=== PATIENT | female | born 1945 | race Caucasian/White ===

== ENCOUNTER → 2018-03-04 08:15 | Outpatient (CLI) | payer MEDICARE, SELFPAY ==
--- NOTE | 2018-03-04 | DI.MG.S_ITS ---
UNILATERAL RIGHT DIGITAL DIAGNOSTIC MAMMOGRAM 3D/2D WITH ADDITIONAL VIEWS: 03/04/2018 CLINICAL: Additional evaluation requested from prior study. Family history of breast cancer. Comparison is made to exams dated: 01/30/2018 mammogram, 01/30/2017 mammogram, and 01/31/2016 mammogram - [facility]. The tissue of the right breast is heterogeneously dense. This may lower the sensitivity of mammography. There are grouped fine punctate calcifications in the right breast posterior depth lateral region seen on the craniocaudal view only. No other significant masses or calcifications are seen in the breast. IMPRESSION: PROBABLY BENIGN The grouped fine punctate calcifications in the right breast are probably benign. A follow-up mammogram in 6 months is recommended. A follow-up mammogram in 6 months is recommended to demonstrate stability. This exam was interpreted at Station ID: [id number]. NOTE: For mammograms, a report in lay terms will be sent to the patient. Approximately 15% of breast malignancies will not be visualized mammographically. In the management of a palpable breast mass, a negative mammogram must not discourage biopsy of a clinically suspicious lesion. Electronically Signed By: Bjorn espino/kalie:03/04/2018 09:21:14 letter sent: Followup Recommended ACR BI-RADS Category 3: Probably benign 3343F
== END ==
PROVIDERS: Family Provider Internal Medicine; PCP Internal Medicine; Visit Provider Internal Medicine
DX: R92.8 Other abnormal and inconclusive findings on diagnostic imaging of breast (principal)
CPT/HCPCS: 77065; G0279

== ENCOUNTER → 2018-07-15 09:25 | Outpatient (CLI) | payer MEDICARE, SELFPAY ==
--- NOTE | 2018-07-15 | DI.MG.S_ITS ---
UNILATERAL RIGHT DIGITAL DIAGNOSTIC MAMMOGRAM 3D/2D WITH AUGMENTATION: 07/15/2018 CLINICAL: Patient returns for a 6 month follow up of the right breast. Comparison is made to exams dated: 03/04/2018 mammogram, 01/30/2018 mammogram, 01/30/2017 mammogram, 01/31/2016 mammogram, and 01/29/2015 mammogram - [facility]. The tissue of right breast is heterogeneously dense. This may lower the sensitivity of mammography. There are stable grouped fine punctate calcifications in the right breast middle depth lateral region seen on the craniocaudal view only. No other significant masses or calcifications are seen in the breast. IMPRESSION: PROBABLY BENIGN The stable grouped fine punctate calcifications in the right breast are probably benign. A follow-up mammogram in 6 months is recommended to demonstrate stability. This exam was interpreted at Station ID: [id number]. NOTE: For mammograms, a report in lay terms will be sent to the patient. Approximately 15% of breast malignancies will not be visualized mammographically. In the management of a palpable breast mass, a negative mammogram must not discourage biopsy of a clinically suspicious lesion. Electronically Signed By: Cristina craig/:07/15/2018 12:01:45 letter sent: Followup Recommended ACR BI-RADS Category 3: Probably benign 3343F
== END ==
PROVIDERS: Family Provider Internal Medicine; PCP Internal Medicine; Visit Provider Internal Medicine
DX: R92.1 Mammographic calcification found on diagnostic imaging of breast (principal)
CPT/HCPCS: 77065; G0279

== ENCOUNTER → 2019-01-13 07:51 | Outpatient (CLI) | payer MEDICARE, SELFPAY ==
--- NOTE | 2019-01-13 | DI.MG.S_ITS ---
BILATERAL DIGITAL DIAGNOSTIC MAMMOGRAM 3D/2D SHORT-TERM FOLLOW-UP WITH AUGMENTATION: 01/13/2019 CLINICAL: SHORT TERM FOLLOW UP RIGHT BREAST, DUE BILATERALLY. Family history of breast cancer. Comparison is made to exams dated: 07/15/2018 mammogram, 03/04/2018 mammogram, and 01/30/2018 mammogram - [facility]. The tissue of both breasts is heterogeneously dense. This may lower the sensitivity of mammography. There are stable benign loosely grouped fine punctate calcifications in the right breast posterior depth lateral region seen on the craniocaudal view only. Prepectoral silicone implants are in place and appear stable. No other significant masses, calcifications, or other findings are seen in either breast. IMPRESSION: Stable grouped right breast calcifications. There is no mammographic evidence of malignancy. Stable, intact implants. A 1 year screening mammogram is recommended. Findings and recommendations conveyed to the patient. This exam was interpreted at Station ID: [id number]. NOTE: For mammograms, a report in lay terms will be sent to the patient. Approximately 15% of breast malignancies will not be visualized mammographically. In the management of a palpable breast mass, a negative mammogram must not discourage biopsy of a clinically suspicious lesion. Electronically Signed By: Kadie france/:01/13/2019 09:24:04 letter sent: Normal Exam ACR BI-RADS Category 2: Benign Finding(s) 3342F
== END ==
PROVIDERS: PCP Internal Medicine; Visit Provider Internal Medicine
DX: R92.1 Mammographic calcification found on diagnostic imaging of breast (principal); Z80.3 Family history of malignant neoplasm of breast; Z98.82 Breast implant status
CPT/HCPCS: 77066; G0279

== ENCOUNTER → 2019-01-17 14:29 | Outpatient (CLI) | payer MEDICARE, SELFPAY ==
--- NOTE | 2019-01-17 | DI.RAD.S_ITS ---
This blank DEXA report has been sent in error by the PACS system. The correct and complete report will be forthcoming in 1-2 days. Thank you for your patience and understanding. Dictated by: Liborio Gipson M.D. on 01/17/2019 at 15:38 Approved by: Liborio Gipson M.D. on 01/17/2019 at 15:38
== END ==
PROVIDERS: PCP Internal Medicine; Visit Provider Internal Medicine
DX: M85.851 Other specified disorders of bone density and structure, right thigh (principal); Z78.0 Asymptomatic menopausal state; Z87.891 Personal history of nicotine dependence
CPT/HCPCS: 77080

== ENCOUNTER → 2019-04-08 07:11 | Outpatient (CLI) | payer MEDICARE, SELFPAY ==
[2019-04-08 08:22] LABS: Alanine Aminotransferase 25 IU/L (9-52); Aspartate Aminotransferase 33 IU/L (14-36); BUN Creatinine Ratio 22.9 (6-22); Blood Urea Nitrogen 16 mg/dL (7-17); Calcium 9.5 mg/dL (8.4-10.2); Carbon Dioxide 27 mmol/L (22-32); Chloride 108 mmol/L (98-107); Cholesterol 150 mg/dL (140-199); Estimated Glomerular Filt Rate > 60.0 mL/min (>60); Glucose 84 mg/dL (80-110); HDL Cholesterol 69 mg/dL (40-60); HEMOLYSIS < 15 (0-50); LDL Cholesterol Calculated 73 mg/dL (<100); Sodium 142 mmol/L (137-145); Triglycerides 38 mg/dL (35-150)
[2019-04-08 08:46] LABS: Vitamin D 25 Hydroxy (D3) 52.8 ng/mL (30.0-100.0)
== END ==
PROVIDERS: PCP Internal Medicine; Visit Provider Internal Medicine
DX: E78.5 Hyperlipidemia, unspecified (principal); M85.80 Other specified disorders of bone density and structure, unspecified site
CPT/HCPCS: 36415; 80048; 80061; 82306; 84450; 84460

== ENCOUNTER 2019-05-14 12:08 | Day surgery (SDC) | payer MEDICARE, SELFPAY ==
--- NOTE | 2019-05-10 19:01 | PM.PREOP ---
Pre-operative Note Interval Note History & Physical reviewed/Exam performed by Physician: Yes Changes to H&P: No
--- NOTE | 2019-05-10 19:01 | PM.OP.1 ---
Operative Date/Time/Diagnoses Date of procedure: 05/14/19 Time of procedure: 14:15 Procedure & Clinicians Procedure: Preoperative diagnoses: 1. Left nuclear sclerotic and cortical cataract. 2. Sleep disorder. Postoperative diagnoses: 1. Cataract removed by phacoemulsification with placement of posterior chamber intraocular lens. Procedure: Phacoemulsification with posterior chamber intraocular lens implant Surgeon: Florencia Johnson MD Complications: None Specimen: None Implant: ZCBOO+23.5 Blood loss: None Anesthesia: Retrobulbar with monitored standby Description of procedure: Patient presents with a complaint of decreased vision due to cataract which is affecting activities of daily living. The patient wants surgery to improve vision. The patient was taken to the operating room and given IV sedation. A retrobulbar block consisting of 6 cc of 2% xylocaine without epinephrine mixed half and half with 0.5% Marcaine with 1 cc of hyaluronidase added is placed between the medial and lateral 1/3 of the inferior orbital rim. Lid akinesia is obtain with 1% xylocaine with epinephrine infiltrated along the lid margin. The eye is manually massaged for 30 sec, prepped using Betadine solution, and draped in the usual sterile fashion. Temporal approach was made, a 1 mm side-port incision was made 90? from the proposed clear corneal incision position. Phenylephrine 1.5% mixed with 1% xylocaine 0.2 cc was placed into the anterior chamber. Viscoat followed by Maribeth was then placed. A 2.6 mm clear incision with a 2.6 mm blade was placed. A 360 degree capsulorrhexis style capsulotomy was then performed with a cystitome needle on a Healon. Hydrodelineation and hydrodissection were performed. The phacoemulsification unit is introduced, and sculpting notice used to groove the central lens. It is then removed in chopping mode. Epi nucleus is removed with epinuclear mode and irrigation aspiration was used to remove the peripheral cortex. The posterior capsule is polished. The intraocular lens is selected, inspected, power confirmed, and placed in the posterior chamber. The pupil was constricted with Miostat.. The wound was stromally hydrated and tested for leaks, there was none and it was left sutureless. Vigamox 0.1 cc was placed into the anterior chamber. Kenalog 0.2 cc was placed in the superior subconjunctival space. A drop of antibiotic and was placed and the eye was patched and shielded. The patient was stable and returned to the recovery room in excellent condition. Dictated by: Florencia Johnson MD Copy to: [facility]
[2019-05-14] MEDS: PROPARACAINE 0.5% OPHTH SOL 2 DROPS EYE-OP (12:25)
[2019-05-14 12:30] VITALS: BP 138/78; PULSE 73; RESP 20; TEMP 37.3; O2SAT 100; BMI 21.8
[2019-05-14] MEDS: CATARACT EYE COMPOUND (10 DROPS/SYRINGE) 3 DROPS EYE-OP (12:30)
[2019-05-14] MEDS: BALANCED SALT IRRIG SOLN NO.2 15 ML IRR (13:58)
[2019-05-14] MEDS: CHONDROIDTIN/SOD HYALURONATE 1.05 ML SYRINGE INTRAOCULA (13:59)
[2019-05-14] MEDS: MOXIFLOXACIN OPHTH DROPS 3 ML BOTTLE 2 DROPS INJ (13:59)
[2019-05-14] MEDS: NEOMYCIN/POLY/DEX OPHTH OINT 1 APPLIC EYE-LEFT (13:59)
[2019-05-14] MEDS: HYALURONATE SODIUM 10 MG/ML SYRINGE INJ (13:59)
[2019-05-14] MEDS: PHENYLEPHRINE/LIDOCAINE VIAL (OR) 0.2 ML EYE-OP (14:00)
[2019-05-14] MEDS: TRIAMCINOLONE 50 MG/5 ML VIAL INJ (14:00)
[2019-05-14] MEDS: BALANCED SALT IRRIG SOLN NO.2 500 ML, EPINEPHrine 1 MG IRR (14:01)
[2019-05-14] MEDS: LIDOCAINE 2% 4 ML, BUPIVACAINE 0.5% (PF) 4 ML, HYALURONIDASE 150 UNIT INJ (14:01)
[2019-05-14 14:30] VITALS: BP 137/68; PULSE 69; RESP 16; TEMP 36.3; O2SAT 100
== END 2019-05-14 14:43 | disposition home or self-care (01) ==
LOC: OR 12:09
PROVIDERS: PCP Internal Medicine; Visit Provider Ophthalmology
PROC: (CPT 66984; principal; 2019-05-14 14:15)
DX: H25.812 Combined forms of age-related cataract, left eye (principal)
CPT/HCPCS: 66984; J0171; J2704; J3301; J3470

== ENCOUNTER → 2020-02-11 08:57 | Outpatient (CLI) | payer MEDICARE, SELFPAY ==
--- NOTE | 2020-02-11 | DI.US.S_ITS ---
LIMITED ULTRASOUND OF LEFT BREAST: 02/11/2020 CLINICAL: Focal left breast pain. Comparison is made to exams dated: 02/11/2020 mammogram, 01/13/2019 mammogram, 01/30/2018 mammogram, 01/30/2017 mammogram, 01/31/2016 mammogram, and 07/15/2018 mammogram - [facility]. Real-time ultrasound of the left breast 11-1 o'clock region was performed. Dowd scale images of the real-time examination were reviewed. No significant abnormalities were seen sonographically in the left breast in the region of focal pain. IMPRESSION: NEGATIVE There is no sonographic evidence of malignancy in the region of focal pain in the left breast. Exam findings and recommendation were conveyed to the patient by the [employer] D[employer]. Patient is advised to monitor the area for significant change. Return to annual mammogram screening schedule is recommended. This exam was interpreted at Station ID: [id number]. Electronically Signed By: Adriano Carranza M.D. slc/:02/11/2020 11:54:02 letter sent: Normal Exam Ultrasound BI-RADS: 1 Negative
--- NOTE | 2020-02-11 | DI.MG.S_ITS ---
BILATERAL DIGITAL DIAGNOSTIC MAMMOGRAM 3D/2D WITH AUGMENTATION: 02/11/2020 CLINICAL: Left breast pain. Comparison is made to exams dated: 01/13/2019 mammogram, 07/15/2018 mammogram, 03/04/2018 mammogram, 01/30/2018 mammogram, 01/30/2017 mammogram, and 01/31/2016 mammogram - [facility]. The tissue of both breasts is heterogeneously dense. This may lower the sensitivity of mammography. No mammographic finding in the region of focal pain in the left superior breast. There are stable benign grouped fine punctate calcifications in the right breast posterior depth lateral region seen on the craniocaudal view only. These maybe associated with the breast implant capsule. Mild irregularity of the left breast prepectoral silicone implant at the inferior medial margin is stable over multiple prior exams. No other significant masses, calcifications, or other findings are seen in either breast. IMPRESSION: INCOMPLETE: NEEDS ADDITIONAL IMAGING EVALUATION No mammographic evidence of malignancy. Targeted ultrasound of the left superior breast at the site of focal pain is recommended and will immediately follow. This exam was interpreted at Station ID: [id number]. NOTE: For mammograms, a report in lay terms will be sent to the patient. Approximately 15% of breast malignancies will not be visualized mammographically. In the management of a palpable breast mass, a negative mammogram must not discourage biopsy of a clinically suspicious lesion. Electronically Signed By: Adriano Carranza M.D. [facility] [place]/:02/11/2020 11:25:22 ACR BI-RADS Category 0: Incomplete 3340F
== END ==
PROVIDERS: PCP Internal Medicine; Referring Provider Internal Medicine; Visit Provider Internal Medicine
DX: R92.8 Other abnormal and inconclusive findings on diagnostic imaging of breast (principal); R92.1 Mammographic calcification found on diagnostic imaging of breast; N64.4 Mastodynia; Z98.82 Breast implant status
CPT/HCPCS: 76642; 77066; G0279

== ENCOUNTER → 2020-04-30 07:10 | Outpatient (CLI) | payer MEDICARE, SELFPAY ==
[2020-04-30 08:41] LABS: Alanine Aminotransferase 28 IU/L (<35); Aspartate Aminotransferase 38 IU/L (14-36); Cholesterol 164 mg/dL (140-199); HDL Cholesterol 66 mg/dL (40-60); LDL Cholesterol Calculated 86 mg/dL (<100); Triglycerides 60 mg/dL (35-150)
== END ==
PROVIDERS: PCP Internal Medicine; Referring Provider Internal Medicine; Visit Provider Internal Medicine
DX: E78.5 Hyperlipidemia, unspecified (principal)
CPT/HCPCS: 36415; 80061; 84450; 84460

== ENCOUNTER → 2020-07-26 13:49 | Outpatient (CLI) | payer MEDICARE, SELFPAY ==
[2020-07-27 10:24] LABS: COVID19 Sendout Not Detected (Not Detect)
== END ==
PROVIDERS: PCP Internal Medicine; Visit Provider Physician Assistant
DX: Z11.59 Encounter for screening for other viral diseases (principal)
CPT/HCPCS: 87635

== ENCOUNTER → 2021-02-11 10:55 | Outpatient (CLI) | payer MEDICARE, SELFPAY ==
--- NOTE | 2021-02-11 10:57 | DI.MG.S_ITS ---
BILATERAL DIGITAL SCREENING MAMMOGRAM 3D/2D WITH CAD WITH AUGMENTATION: 02/11/2021 CLINICAL: Routine screening. Family history of breast cancer. Comparison is made to exams dated: 02/11/2020 mammogram, 01/13/2019 mammogram, and 01/30/2018 mammogram - [facility]. The tissue of both breasts is heterogeneously dense. This may lower the sensitivity of mammography. Current study was also evaluated with a Computer Aided Detection (CAD) system. Bilateral breast implants are stable and intact. There is a benign global asymmetry in the right breast. No significant masses, calcifications, or other findings are seen in either breast. There has been no significant interval change. IMPRESSION: BENIGN There is no mammographic evidence of malignancy. A 1 year screening mammogram is recommended. This exam was interpreted at Station ID: [id number]. NOTE: For mammograms, a report in lay terms will be sent to the patient. Approximately 15% of breast malignancies will not be visualized mammographically. In the management of a palpable breast mass, a negative mammogram must not discourage biopsy of a clinically suspicious lesion. Electronically Signed By: Kadie france/kalie:02/11/2021 11:59:18 letter sent: Normal Exam ACR BI-RADS Category 2: Benign Finding(s) 3342F
== END ==
PROVIDERS: PCP Internal Medicine; Referring Provider Internal Medicine; Visit Provider Internal Medicine
DX: Z12.31 Encounter for screening mammogram for malignant neoplasm of breast (principal); Z80.3 Family history of malignant neoplasm of breast
CPT/HCPCS: 77063; 77067

== ENCOUNTER → 2022-02-13 14:24 | Outpatient (CLI) | payer MEDICARE, SELFPAY ==
--- NOTE | 2022-02-13 | DI.MG.S_ITS ---
BILATERAL DIGITAL SCREENING MAMMOGRAM 3D/2D WITH CAD WITH AUGMENTATION: 02/13/2022 CLINICAL: Patient presents for routine screening. S/P bilateral augmentation. Comparison is made to exams dated: 02/11/2021 mammogram, 02/11/2020 mammogram, 01/13/2019 mammogram, and 07/15/2018 mammogram - [facility]. The tissue of both breasts is heterogeneously dense. This may lower the sensitivity of mammography. Current study was also evaluated with a Computer Aided Detection (CAD) system. Bilateral breast implants are stable. There is a benign global asymmetry in the right breast. No significant masses, calcifications, or other findings are seen in either breast. There has been no significant interval change. IMPRESSION: BENIGN There is no mammographic evidence of malignancy. A 1 year screening mammogram is recommended. This exam was interpreted at Station ID: [id number]. NOTE: For mammograms, a report in lay terms will be sent to the patient. Approximately 15% of breast malignancies will not be visualized mammographically. In the management of a palpable breast mass, a negative mammogram must not discourage biopsy of a clinically suspicious lesion. Electronically Signed By: Harpal buenrostro/kalie:02/13/2022 15:49:50 letter sent: Normal Exam ACR BI-RADS Category 2: Benign Finding(s) 3342F
== END ==
PROVIDERS: PCP Internal Medicine; Referring Provider Internal Medicine; Visit Provider Internal Medicine
DX: Z12.31 Encounter for screening mammogram for malignant neoplasm of breast (principal); Z98.82 Breast implant status
CPT/HCPCS: 77063; 77067

== ENCOUNTER → 2023-02-14 14:09 | Outpatient (CLI) | payer MEDICARE, SELFPAY ==
--- NOTE | 2023-02-14 | DI.MG.S_ITS ---
BILATERAL DIGITAL SCREENING MAMMOGRAM 3D/2D WITH CAD WITH AUGMENTATION: 02/14/2023 CLINICAL: Routine screening. Family history of breast cancer. Comparison is made to exams dated: 02/13/2022 mammogram, 02/11/2021 mammogram, and 02/11/2020 mammogram - [facility]. Both breasts are heterogeneously dense, which may obscure small masses (category c / 51-75% glandular tissue). Current study was also evaluated with a Computer Aided Detection (CAD) system. Bilateral breast implants are stable. There is a stable benign global asymmetry in the right breast. No significant masses, calcifications, or other findings are seen in either breast. There has been no significant interval change. IMPRESSION: BENIGN There is no mammographic evidence of malignancy. A 1 year screening mammogram is recommended. Based on the Tyrer Cuzick model (a risk assessment model) the patient's lifetime risk is 6.3% and her 10 year risk is 0.0%. According to the ACR, ACS, and NCCN guidelines, an annual breast MRI exam along with mammogram is recommended if the patient's lifetime risk is 20% or greater. This exam was interpreted at Station ID: [id number]. NOTE: For mammograms, a report in lay terms will be sent to the patient. Approximately 15% of breast malignancies will not be visualized mammographically. In the management of a palpable breast mass, a negative mammogram must not discourage biopsy of a clinically suspicious lesion. Electronically Signed By: Catarino hill/penlisandro:02/14/2023 16:56:29 letter sent: Normal Exam ACR BI-RADS Category 2: Benign Finding(s) 3342F
== END ==
PROVIDERS: PCP Internal Medicine; Referring Provider Internal Medicine; Visit Provider Internal Medicine
DX: Z12.31 Encounter for screening mammogram for malignant neoplasm of breast (principal); Z80.3 Family history of malignant neoplasm of breast
CPT/HCPCS: 77063; 77067

== ENCOUNTER 2023-05-30 13:15 | Day surgery (SDC) | payer MEDICARE, SELFPAY ==
[2023-05-30 13:20] VITALS: BP 131/69; PULSE 71; RESP 17; TEMP 36.6; O2SAT 99; BMI 20.9
[2023-05-30] MEDS: LACTATED RINGERS 1,000 ML 125 ML IV (13:35)
--- NOTE | 2023-05-30 13:55 | PM.PREOP ---
Pre-operative Note COVID-19 COVID-19 status: Negative Interval Note History & Physical reviewed/Exam performed by Physician: Yes Changes to H&P: No ASA Class (for procedural sedation): II
--- NOTE | 2023-05-30 13:56 | P.OP.EGD_ITS ---
Operative Date/Time/Diagnoses Date of procedure: 05/30/23 Pre-op diagnosis: See indication and findings Procedure & Clinicians Study performed: EGD Indications: Dysphagia and GE reflux Procedure Notes Procedure in detail: After informed consent was obtained the patient was placed in left position. The video upper endoscope was placed into the oropharynx and with the patient's help swallowed into the esophagus. The esophagus stomach and duodenum were carefully examined. On withdrawal retroflexed view the GE junction was carefully examined on direct and retroflexed view. The scope was removed. The patient tolerated procedure well. Blood loss none Complications none Sedation mac Findings 1. Normal esophagus with the exception of the GE junction where there appeared to be mild Schatzki's ring. This was best seen on retroflexed view. On withdrawal guidewire was inserted and a 51 [place] Savary dilator was passed without difficulty. 2. Normal stomach 3. Normal duodenal bulb and sweep Flory will call me in 1 month to let us know how she is doing and make sure that this is given her some resolution. She will otherwise need to be dilated on as needed basis.
[2023-05-30 14:16] VITALS: BP 144/78; PULSE 76; RESP 14; TEMP 36.6; O2SAT 97
[2023-05-30 14:22] VITALS: BP 126/71; PULSE 70; RESP 23; O2SAT 97
[2023-05-30 14:25] VITALS: BP 130/69; PULSE 87; RESP 19; TEMP 36.7; O2SAT 95
[2023-05-30 14:31] VITALS: BP 141/79; PULSE 68; RESP 14; O2SAT 98
== END 2023-05-30 14:49 | disposition home or self-care (01) ==
PROVIDERS: PCP Internal Medicine; Referring Provider Internal Medicine Gastroenterology; Visit Provider Internal Medicine Gastroenterology
PROC: 0DJ08ZZ Inspection of Upper Intestinal Tract, Via Natural or Artificial Opening Endoscopic (ICD-10-PCS; CPT 43235; principal; 2023-05-30 14:30)
DX: R13.10 Dysphagia, unspecified (principal); K21.9 Gastro-esophageal reflux disease without esophagitis; K22.2 Esophageal obstruction
CPT/HCPCS: 43248; J2704

== ENCOUNTER 2024-02-04 09:22 | Day surgery (SDC) | payer MEDICARE, SELFPAY ==
--- NOTE | 2024-02-04 | PATH_ITS ---
[facility] Accession Number: [id number] . 01 Material submitted: . PART A: cecum - CECUM POLYP PART B: rectum - RECTAL ULCER . 01 Diagnosis: A. CECAL POLYP: Tubular adenoma. . B. RECTUM, BIOPSY: Colorectal mucosa with features of mucosal prolapse. Negative for active inflammation, granulomas, dysplasia, or malignancy. R 02/08/2024 1510 Local . 01 Electronically signed: . Juanpablo Richter MD, PhD, Pathologist NPI- [id number] . 01 Gross description: . Part A: CECUM POLYP: Received in formalin are 2 fragment(s) of briones, soft tissue measuring 0.1 x 0.1 x 0.1 cm in aggregate submitted entirely in 1 cassette(s) Part B: RECTAL ULCER: Received in formalin are 2 fragment(s) of briones, soft tissue measuring 0.1 x 0.1 x 0.1 cm to 0.3 x 0.3 x 0.2 cm submitted entirely in 1 cassette(s) /DELMIS 02/05/2024 2300 Local . 01 Pathologist provided ICD-10: Z80.0, D12.0, K62.3 . 01 CPT . 295602, 129810 Performed at: [address] [facility] [address], [place], [place] [id number] MD Bjorn Rush MD Phone: [phone]
--- NOTE | 2024-02-04 09:41 | P.HP_ITS ---
History of Present Illness History of Present Illness Date Patient Seen: 02/04/24 Time Patient Seen: 09:42 Chief complaint: Dx Colonoscopy w/poss bx Narrative: 78-year-old presenting for asymptomatic colon cancer screening. I reviewed my office note from 2022. Otherwise no changes. She had a successful EGD by Dr. Borja for the dysphagia symptoms. [facility] Social History household members: spouse Smoking Status: Never smoker alcohol intake: current Meds Home Medications and Allergies Home Medications Medication Instructions Recorded Confirmed Type atorvastatin 10 mg tablet 5 mg PO DAILY 05/14/19 05/30/23 History atorvastatin 10 mg tablet 5 mg PO ONCE PM 02/04/24 02/04/24 History Allergies Allergy/AdvReac Type Severity Reaction Status Date / Time No Known Drug Allergies Allergy Verified 05/14/19 12:37 Review of Systems Review of Systems ROS: Yes All systems reviewed with the patient and are negative except as otherwise documented Exam Const General: cooperative HENMT Head: normal to inspection Eyes General: appearance normal, both eyes and all related structures Neck Neck: normal visual inspection Chest Chest: normal inspection of the chest Resp Effort & Inspection: normal respiratory effort Cardio Rate: regular rate GI Inspection: normal to inspection Skin General: no rashes or lesions noted Neuro General: patient alert and patient awake Extrem General: normal to inspection and no pedal edema Psych Appearance: grossly normal Assessment & Plan Assessment & Plan narrative: 78-year-old female here for colon cancer screening. Colonoscopy is pursued today.
[2024-02-04] MEDS: LACTATED RINGERS 1,000 ML 42 ML IV (09:52)
[2024-02-04 10:00] VITALS: BP 129/56; PULSE 76; RESP 16; TEMP 36.2; O2SAT 98
[2024-02-04] MEDS: ONDANSETRON 4 MG/2 ML INJ IV (10:10)
--- NOTE | 2024-02-04 11:07 | PM.OP.COLON ---
Operative Date/Time/Diagnoses Date of procedure: 02/04/24 Time of procedure: 11:07 Pre-op diagnosis: Colon cancer screening Post-op diagnosis: same Procedure & Clinicians Study performed: Colonoscopy with cold snare polypectomy and biopsies Same procedure as scheduled: Yes Indications: Colon cancer screening Surgeon: Rodrigo Rosado Procedure Notes SCOAP/Timeout: Done Procedure in detail: After the risks and benefits were explained, written and verbal informed consent was obtained. The patient was brought into the procedure room and placed into the left lateral decubitus position. Please see anesthesia notes for sedation details. Digital rectal examination was accomplished. The scope was introduced into the patient and advanced under direct visualization to the cecum as identified by the appendiceal orifice and ileocecal valve. The scope was slowly withdrawn to carefully examine the mucosa for any defects or lesions. Comprehensive imaging was accomplished throughout the rectum including the dentate line. The colon was decompressed, the scope was then removed from the patient who tolerated the procedure well. Pediatric colonoscope Bowel prep adequate Scope withdrawal time: 14 minutes Sedation minutes: 30 Complications: none Impression: The patient had an exceedingly tortuous colon. Navigation was quite difficult. There was some scattered diverticulosis throughout the sigmoid colon. In the cecum there was an approximately 6 mm sessile polyp removed with cold snare. In the rectum there were a couple of ulcerated sections suggestive of healing stercoral ulceration. I took biopsies from the edge of 1 of the ulcers in the distal rectum that looked a little more irregular in nature to exclude any element of neoplasm. The patient had evidence of grade 2 internal hemorrhoids with hypertrophied anal papilla. Endoscopic diagnosis 1. Colon polyp 2. Diverticulosis 3. Grade 2 hemorrhoids 4. Subtle multifocal rectal ulcerations-concerning for healing stercoral ulceration. Post-procedure Plan for aftercare: 1. Await histology. 2. Increased [id number] daily fiber supplementation for soft regular easy to evacuate stools. Disposition: PACU
[2024-02-04 11:09] VITALS: BP 116/48; PULSE 76; RESP 165; TEMP 36.1; O2SAT 100
[2024-02-04 11:14] VITALS: BP 118/54; PULSE 69; RESP 19; O2SAT 100
[2024-02-04 11:19] VITALS: BP 115/55; PULSE 68; RESP 18; O2SAT 100
[2024-02-04 11:29] VITALS: BP 112/59; PULSE 68; RESP 14; TEMP 36.9; O2SAT 97
== END 2024-02-04 11:41 | disposition home or self-care (01) ==
PROVIDERS: PCP Internal Medicine; Referring Provider Internal Medicine Gastroenterology; Visit Provider Internal Medicine Gastroenterology
PROC: 0DJD8ZZ Inspection of Lower Intestinal Tract, Via Natural or Artificial Opening Endoscopic (ICD-10-PCS; CPT 45378; principal; 2024-02-04 10:30)
DX: Z12.11 Encounter for screening for malignant neoplasm of colon (principal); K64.1 Second degree hemorrhoids; K57.30 Diverticulosis of large intestine without perforation or abscess without bleeding; D12.0 Benign neoplasm of cecum
CPT/HCPCS: 45385; 45380; J2405; J2704

== ENCOUNTER → 2024-02-18 12:27 | Outpatient (CLI) | payer MEDICARE, SELFPAY ==
--- NOTE | 2024-02-18 | DI.MG.S_ITS ---
BILATERAL DIGITAL SCREENING MAMMOGRAM 3D/2D WITH CAD WITH AUGMENTATION: 02/18/2024 CLINICAL: Routine screening. Family history of breast cancer. Comparison is made to exams dated: 02/14/2023 mammogram, 02/13/2022 mammogram, and 02/11/2021 mammogram - [facility]. Both breasts are heterogeneously dense, which may obscure small masses (category c / 51-75% glandular tissue). Current study was also evaluated with a Computer Aided Detection (CAD) system. Bilateral breast implants are stable. There is a stable benign global asymmetry in the right breast. No significant masses, calcifications, or other findings are seen in either breast. There has been no significant interval change. IMPRESSION: BENIGN There is no mammographic evidence of malignancy. A 1 year screening mammogram is recommended. Based on the Tyrer Cuzick model (a risk assessment model) the patient's lifetime risk is 5.6% and her 10 year risk is 0.0%. According to the ACR, ACS, and NCCN guidelines, an annual breast MRI exam along with mammogram is recommended if the patient's lifetime risk is 20% or greater. This exam was interpreted at Station ID: [id number]. NOTE: For mammograms, a report in lay terms will be sent to the patient. Approximately 15% of breast malignancies will not be visualized mammographically. In the management of a palpable breast mass, a negative mammogram must not discourage biopsy of a clinically suspicious lesion. Electronically Signed By: Kadie france/kalie:02/18/2024 13:27:08 letter sent: Normal Exam ACR BI-RADS Category 2: Benign Finding(s) 3342F
== END ==
PROVIDERS: PCP Internal Medicine; Referring Provider Internal Medicine; Visit Provider Internal Medicine
DX: Z12.31 Encounter for screening mammogram for malignant neoplasm of breast (principal); R92.333 Mammographic heterogeneous density, bilateral breasts; Z98.82 Breast implant status; Z80.3 Family history of malignant neoplasm of breast
CPT/HCPCS: 77063; 77067

== ENCOUNTER → 2024-03-12 11:57 | Outpatient (CLI) | payer MEDICARE, SELFPAY ==
--- NOTE | 2024-03-12 11:58 | DI.RAD.S_ITS ---
PROCEDURE: XR DEXA AXIAL SKELETON INDICATIONS: FU ON OSTEOPENIA/POSTMENOPAUSAL STATUS COMPARISON: [facility], , XR DEXA AXIAL SKELETON, 01/17/2019, 14:46. [facility], , DEXA AXIAL SKELETON, 02/01/2016, 15:25. FINDINGS: Lumbar Spine: L1-L3. Bone mineral density 0.825 g/cm2, T score -1.8. Left Hip: Bone mineral density 0.737 g/cm2, T score -1.7. Left Femoral Neck: Bone mineral density 0.577 g/cm2, T score -2.4. Right Hip: Bone mineral density 0.714 g/cm2, T score -1.9. Right Femoral Neck: Bone mineral density 0.582 g/cm2, T score -2.4. Fracture Risk Calculation (when applicable): 10-year fracture risk of a major osteoporotic fracture 16% and of a hip fracture 5.4%. (T score greater or equal to -1.0 to: NORMAL) (T score from -1.1 to -2.4: OSTEOPENIA) (T score less than or equal to -2.5: OSTEOPOROSIS) IMPRESSION: Osteopenia Follow-up guidelines as follows: Osteoporosis: Consider a repeat DEXA and Vertebral Fracture Assessment (VFA) exam in 2 years or sooner if medically necessary, to reassess this patient's status. Osteopenia: Consider a repeat DEXA in 2-3 years to reassess this patient's status, or if there is a new clinical indication. Normal: Consider a repeat DEXA in 5 years or sooner, or if there is a new clinical indication. All treatment decisions require clinical judgment and consideration of individual patient factors, including patient preferences, comorbidities, previous drug use, risk factors not captured in the FRAX model (e.g., frailty, falls, vitamin D deficiency, increased bone turnover, interval significant decline in bone density ) and possible under- or over-estimation of fracture risk by FRAX. In addition, the NOF Guide recommends that FDA-approved medical therapies be considered in postmenopausal women and men age >= 50 years with a: * Hip or vertebral (clinical or morphometric) fracture * T-score of <=-2.5 at the spine or hip * Ten-year fracture probability by FRAX of >= 3% for hip fracture or >=20% for major osteoporotic fracture. People with diagnosed cases of osteoporosis or at high risk for fracture should have regular bone mineral density tests. For patients eligible for Medicare, routine testing is allowed once every 2 years. The testing frequency can be increased to one year for patients who have rapidly progressing disease, those who are receiving or discontinuing medical therapy to restore bone mass, or have additional risk factors. Dictated by: Adriano Carranza M.D. on 03/12/2024 at 21:41 Approved by: Adriano Carranza M.D. on 03/12/2024 at 21:44
== END ==
PROVIDERS: PCP Internal Medicine; Referring Provider Internal Medicine; Visit Provider Internal Medicine
DX: M85.89 Other specified disorders of bone density and structure, multiple sites (principal); Z78.0 Asymptomatic menopausal state
CPT/HCPCS: 77080

== ENCOUNTER → 2024-05-26 11:25 | Outpatient (ROUT) | payer MEDICARE, SELFPAY | PROVIDERS: PCP Internal Medicine; Visit Provider Dermatology | DX: Z48.817 Encounter for surgical aftercare following surgery on the skin and subcutaneous tissue (principal) | CPT/HCPCS: 87070; 87075; 87077; 87147; 87186; 87205 ==

== ENCOUNTER → 2025-02-28 10:01 | Outpatient (CLI) | payer MEDICARE, SELFPAY ==
--- NOTE | 2025-02-28 10:04 | DI.MG.S_ITS ---
MM screening mammo implant BI: 02/28/2025. BI-RADS: 2 CLINICAL: 79-year old female for bilateral screening mammogram. Tyrer-Cuzick lifetime risk of 1.8%. No personal or first-degree family history of breast cancer. The patient has bilateral implants. PRIOR EXAMS 02/18/2024, 02/14/2023, 02/13/2022, 02/11/2021, 02/11/2020, 01/13/2019, 07/15/2018, 03/04/2018, 01/30/2018, 01/30/2017, 01/31/2016. MAMMOGRAPHY TECHNIQUE: 2D and 3D (tomosynthesis) digital mammographic views obtained, with additional images as needed for full coverage. Current study was also evaluated with a Computer Aided Detection (CAD) system. DENSITY C. The breasts are heterogeneously dense, which may obscure small masses. IMPLANTS Breast implants present. MAMMOGRAPHY FINDINGS Bilateral: There are no suspicious masses, calcifications, or other findings in the breast. IMPRESSION: * No evidence of malignancy with benign findings. RECOMMENDATIONS Bilateral * Annual screening mammography. OVERALL ASSESSMENT CATEGORY BI-RADS-2: Benign. The [employer] recommends annual screening mammography beginning at age 40 for women with average risk of breast cancer. ELECTRONICALLY SIGNED: Harpal Mejias M.D. on 03/02/2025 at 08:42:26 AM PT Interpreting Station ID: [id number]
== END ==
PROVIDERS: PCP Internal Medicine; Referring Provider Internal Medicine; Visit Provider Internal Medicine
DX: Z12.31 Encounter for screening mammogram for malignant neoplasm of breast (principal); R92.333 Mammographic heterogeneous density, bilateral breasts; Z98.82 Breast implant status
CPT/HCPCS: 77063; 77067